=== PATIENT | female | born 1980 | race Asian ===

== ENCOUNTER 2025-01-07 00:40 | Emergency (ER) | payer OTHER, SELFPAY ==
[2025-01-07 00:41] VITALS: BP 125/77
[2025-01-07 01:21] VITALS: BMI 21.5
[2025-01-07 01:25] VITALS: BP 109/64
[2025-01-07 01:48] LABS: Urine Character Cloudy (Clear)
[2025-01-07 01:59] LABS: Urine Red Blood Cell >100 /HPF (0-2); Urine White Cell 40-50 /HPF (0-5)
--- NOTE | 2025-01-07 02:44 | ED.GENMED ---
History of Present Illness
General
Chief Complaint: Urinary Symptoms
Source: patient
Exam Limitations: none
Time Seen by Provider: 01/07/25 01:16
Nursing documentation reviewed up to this point in time: agreed with
History of Present Illness
History of Present Illness:
see MDM
Past History
Past History
ED Past Medical History: Other (UTIs)
Social History
Tobacco: Non-smoker
Alcohol: None
Drug: None
Personal: Single
Review of Systems
Review of Systems
Allergies reviewed?: Yes
All Other Systems: Not applicable
Phy Exam
Physical Exam
Physical Exam:
GENERAL: Alert , in no apparent distress
EYE: pupils equal and reactive
NECK: Supple
ENT: o/p clr, mmm.
CARDIAC: Regular rate and rhythm .
LUNGS: Clear breath sounds bilaterally, no acute respiratory distress, no wheezes/rales/rhonchi
ABDOMEN: Soft, mild suprapubic tenderness no r/g, no cvat, normal bowel sounds
no cvat
NEUROLOGICAL: Alert and oriented, no focal neuro deficits
SKIN: Warm and dry, skin intact.
MUSCULOSKELETAL: No edema, well perfused. neg cassandra's sign
PSYCH: Normal and appropriate interaction.
Sepsis
Sepsis Screening
Sepsis Assessment: Sepsis Ruled Out
Sepsis Screen
Sepsis Screen: Sepsis Ruled Out
Date: 01/07/25
Time: 06:07
Course
Orders/Labs/Results
Orders:
Orders
01/07/25 01:28
Urinalysis Reflex To Culture Urgent
Date Specimen was Collected: 01/07/25
Time Specimen was Collected: 01:27
Urine Microscopic Reflex Cult Urgent
Urine Culture Urgent
GUZMAN Source: U
Specimen Description:
Date Specimen was Collected: 01/07/25
Time Specimen was Collected: 01:27
01/07/25 01:59
CT Abd/pel Without Iv Or Oral Urgent
Comment:
Reason For Exam: hematuria
01/07/25 02:21
Cefdinir [Omnicef] 300 mg PO NOW STA
Abnormal Lab Results
01/07/25
01:28
Ur Occult Blood Reflex 4+ A
(Negative)
Urine Nitrite (Reflex) Positive A
(Negative)
Urine Bilirubin 2+ A
(Negative)
Urine Urobilinogen 2+ A
(Neg - 1+)
Leukocyte Esterase Rfl 3+ A
(Negative)
Urine RBC >100 A /HPF
(0-2)
Urine WBC (Reflex) 40-50 A /HPF
(0-5)
Urine Bacteria (Reflex) Moderate A
(Negative)
Urine Albumin (Reflex) 3+ A
(Neg - Trace)
Vital Signs
Initial and Last Documented VS:
Initial Vital Signs
Temp Pulse Resp BP Pulse Ox
36.8 C 74 16 125/77 99
01/07/25 00:41 01/07/25 00:41 01/07/25 00:41 01/07/25 00:41 01/07/25 00:41
Last Documented Vital Signs
Temp Pulse Resp BP Pulse Ox
36.8 C 74 18 109/64 99
01/07/25 00:41 01/07/25 00:41 01/07/25 05:02 01/07/25 01:25 01/07/25 03:15
MDM/Problems Addressed
Differential Diagnosis Includes:
see mdm
MDM/Problems Addressed:
Note:
CHIEF COMPLAINT(S)
Burning sensation during urination with visible blood and blood clots in the urine.
HISTORY OF PRESENT ILLNESS
The patient is a 44-year-old female who presented with symptoms that began around 9:00 AM, describing a sensation of warmth and an increased urgency to urinate. She has a history of urinary tract infections and initially attempted self-management by
increasing water intake and taking an [id number] product, which she identified as a cranberry pill or Azo. This intervention was not effective. Around 11:30 AM, the patient noted worsening pain and took acetaminophen, which provided no relief.
Subsequently, she observed blood and blood clots in her urine, prompting her visit. She also reported a mild chill but denied having a fever. The patient has no history of kidney stones but has previously experienced bladder infections. The pain was
localized to the suprapubic region, and she described a persisting sensation of needing to urinate. She mentioned similar symptoms occurred in the past and resolved only after starting antibiotics, though in one instance, the symptoms and bleeding
persisted for an extended period until she consulted with another doctor.
The patient does not report any chronic medical problems, but she mentions taking medication for stomach acid, suggesting a history of gastroesophageal reflux disease.
PHYSICAL EXAM
Nursing notes reviewed and vital signs reviewed.
- The patient reports suprapubic pain.
- Negative for back pain upon current examination discussion.
PROBLEM LIST
Acute:
- Suspected urinary tract infection with hematuria and possible cystitis.
PLAN
- Await urinalysis and culture results to guide appropriate antibiotic therapy.
- Consideration of imaging with a non-contrast computed tomography scan to rule out any kidney stones or other underlying structural issues, given the recurrent nature of the symptoms and hematuria.
- Referral to a urologist for further evaluation if symptoms persist despite antibiotic treatment.
- Advise the patient that symptoms should improve within 48 hours of starting antibiotic therapy.
DIFFERENTIAL DIAGNOSIS
The Differential Diagnosis includes, in no particular order and is not limited to:
- Urinary Tract Infection
- Hemorrhagic Cystitis
- Nephrolithiasis
- Interstitial Cystitis
- Pyelonephritis
- Urethral Syndrome
- Bladder Neoplasm
- Urethritis
- Vaginitis
- Pelvic Inflammatory Disease
01/07/25 - 04:41
Patients urine infection confirmed; antibiotics (twice daily for seven days) and prescription pain relief (Pyritium, 200mg, three times daily for two days) prescribed. Patient advised to start antibiotic regimen immediately, with one dose today and
regular doses from tomorrow. CAT scan showed no kidney stones, but minor swelling in right kidney, possibly predisposing patient to infections. Referral to urologist advised to explore potential ureteral narrowing or scarring due to recurrent
infections. Patient informed about possible hydronephrosis, which, if not affecting kidney function, requires no immediate intervention. Advised follow-up if significant symptoms, like blood in urine, persist 48 hours after starting antibiotics.
*Pulse Oximetry
SaO2: 99
Oxygen Mode of Delivery: Room air
Patient hypoxic: no (99)
*Critical Care Note
Total Time (30-74mins, 75-104mins- exclusive of procedures): Not Applicable
ED Attending Note
-
Portions of this chart may have been created with voice recognition software.� Occasional wrong word or��sound alike� substitutions may have occurred due to the inherent limitations of voice recognition software.
Discharge Plan
Departure
Patient Disposition: Home (Routine Discharge)
Date of Disposition: 01/07/25
Time of Disposition: 04:35
Patient with high blood pressure during this ER visit?: No
Condition: Fair
Covid-19: Not Applicable
Discharge Problem:
Acute hemorrhagic cystitis
Instructions: Urinary Tract Infection, Adult (DC)
Prescriptions:
New
cefdinir 300 mg capsule
300 mg PO Q12H Qty: 14 0RF
phenazopyridine [Pyridium] 200 mg tablet
200 mg PO TID PRN (Reason: Pain) Qty: 5 0RF
Referrals:
Adolfo Moscoso MD [Active, Urology]
Activity Restrictions/Additional Instructions:
You have a urinary tract infection. YOUR CAT SCAN SHOWS THAT YOUR KIDNEY ON THE RIGHT SIDE HAS A LITTLE FLUID, WHICH COULD BE DUE TO A NARROWING OF THE TUBE (URETER). THERE ARE NO STONES
THERE IS NOTHING TO DO URGENTLY, BUT FOLLOWUP WITH UROLOGIST
Take cefdinir twice a day for 7 days. For pain you can use Pyridium 200 mg 3 times a day for 2 days only. Drink plenty of fluids. Follow-up with urology
Interventions
Interventions:
*Risk Screen - Suicide Last Done: 01/07/25 00:41
*General Assessment Last Done: 01/07/25 01:21
*Neglect/Abuse Screening Last Done: 01/07/25 00:41
*ED- Fall Risk Assessment Last Done: 01/07/25 01:21
*ED COVID-19 Vaccine History Last Done: 01/07/25 01:21
*Nursing Disposition Last Done: 01/07/25 05:02
ED-Female Genitourinary Assessment Last Done: 01/07/25 01:21
Discharge Date and Time
Discharge Date/Time: 01/07/25 05:05
Print Language: [place]
[2025-01-07] MEDS: OMNICEF 300 MG PO (03:30)
== END 2025-01-07 05:05 | disposition home or self-care (01) ==
LOC: EMR 00:40
PROVIDERS: Physician Assistant; EMERGENCY PHYSICIAN Student in an Organized Health Care Education/Training Program; FAMILY PHYSICIAN Family Medicine
DX: N30.00 Acute cystitis without hematuria (principal); N28.89 Other specified disorders of kidney and ureter
CPT/HCPCS: 99284; 74176; 81003; 81015; 87077; 87086; 87186